=== PATIENT | male | born 1950 | race Asian ===

== ENCOUNTER 2018-08-20 21:32 | Emergency (ER) | payer MEDICARE, OTHER ==
[~2018-08-20] VITALS: Ht 160 cm; Wt 64.5 kg
[2018-08-20] MEDS ORDERED: ATOR40TA28 PO (21:55)
[2018-08-20 22:42] VITALS: BP 141/80
== END 2018-08-20 23:48 | disposition home or self-care (01) ==
LOC: EMS 21:34
DX: S61.215A Laceration without foreign body of left ring finger without damage to nail, initial encounter (principal); E78.00 Pure hypercholesterolemia, unspecified; I10 Essential (primary) hypertension; Z88.2 Allergy status to sulfonamides; Z79.899 Other long term (current) drug therapy; W26.0XXA Contact with knife, initial encounter; Y93.89 Activity, other specified; Y92.090 Kitchen in other non-institutional residence as the place of occurrence of the external cause; Y99.8 Other external cause status
CPT/HCPCS: 12001

== ENCOUNTER 2020-05-14 20:59 | Emergency (ER) | payer MEDICARE, OTHER ==
[~2020-05-14] VITALS: Ht 160 cm; Wt 59.1 kg
[~2020-05-14 20:59] MED LIST: ATOR40TA28 PO
[2020-05-14 21:03] VITALS: BP 147/73
[2020-05-14 23:21] LABS: COVID AG,FIA SOURCE NASOPHARYNGEAL
== END 2020-05-14 23:10 | disposition home or self-care (01) ==
LOC: EMS 20:59
DX: Z20.828 Contact with and (suspected) exposure to other viral communicable diseases (principal); I10 Essential (primary) hypertension; E78.00 Pure hypercholesterolemia, unspecified; Z88.2 Allergy status to sulfonamides
CPT/HCPCS: 87426; 99283; C9803; U0003